=== PATIENT | female | born 1980 | race Caucasian/White ===

== ENCOUNTER 2017-11-05 08:52 | Observation (INO) | payer OTHER ==
--- NOTE | 2017-11-05 09:13 | EDPHY ---
General - History Smoking Status: Never smoked Time Seen by Provider: 11/05/17 08:58 Narrative: CHIEF COMPLAINT: Flank pain, back pain HISTORY OF PRESENT ILLNESS: Patient complains of pain on the right flank and back. This was a sudden onset on Sunday while at rest. It is located on the right flank and into the mid part of the right back. It is worse with palpation and movement. Does not radiate. Mild nausea but no vomiting. Some improvement when she lays still. No fever or chills. No trauma or injury. No dysuria or hematuria. She may have some increase in her urinary frequency. She has a history of renal colic and Crohn's. She says the pain is very similar to both a Crohn's flare in the past when she was diagnosed with a micro perforation as well as a renal colic with stones on the right side. Difficult for her to discern. She has no other associated complaints or modifying factors. All previous care was in [place]. No physicians in [place] yet. REVIEW OF SYSTEMS: Ten systems reviewed and are negative unless otherwise noted in the HPI PCP: Not yet established. SPECIALISTS: Not yet established PAST MEDICAL HISTORY: Crohn's. IUD in place PAST SURGICAL HISTORY: No surgical history SOCIAL HISTORY: Nonsmoker. Occasional alcohol. No drug use. Works as a manager tax FAMILY HISTORY: Noncontributory EXAMINATION General Appearance: Alert, no distress Head: normocephalic, atraumatic Eyes: Pupils equal and round, no conjunctival pallor or injection ENT, Mouth: Mucous membranes moist Neck: Normal inspection, supple, non-tender Respiratory: Lungs are clear to auscultation. No wheeze, rhonchi or crackles Cardiovascular: Rate is 102 beats per minute. Regular rhythm. No murmur Gastrointestinal: Abdomen is soft and nondistended. Mild tenderness on the right side. No guarding. Negative Whitaker. Negative McBurney. Negative obturator. Mild right-sided CVA tenderness. Back: Soft tissue tenderness in the right flank. No midline tenderness. Neurological: A&O, nonfocal, normal gait. Strength is symmetric. Skin: Warm and dry, no rash. No petechiae or purpura Extremities: Nontender, no pedal edema Psychiatric: Mood and affect normal DIFFERENTIAL DIAGNOSES: Including but not limited to Crohn's flare, ileitis, colitis, diverticulitis, renal colic, ureteral lithiasis, biliary colic, appendicitis MDM: 9:13 a.m. Right-sided flank and back pain with history of Crohn's and renal colic. Patient is uncertain this is more similar to her Crohn's flares renal colic. She no urinary complaints. She has no abnormality on abdominal exam. Her vital signs are within normal limits with mild tachycardia. She is afebrile and resting comfortably in no acute distress. She does not want any pain medication at this time. I have ordered laboratory studies and urinalysis. I have not ordered any imaging until the laboratory studies returned 9:20 a.m. CBC returns with a critically high hemoglobin and hematocrit. I have reviewed this with Dr. Matthews, and we will check a repeat CBC. 9:39 a.m. Repeat CBC returns with my minimally different hematocrit and hemoglobin. Hematocrit is no longer in the critical range. I discussed the case with Dr. Matthews. We have ordered 1 L IV fluid 9:40 a.m. Chemistry is unremarkable for any significant changes. HCG is negative. The patient is asking for pain medication. I have ordered IV Toradol. Urinalysis is pending 10:10 a.m. Urinalysis unremarkable. I have re-evaluated the patient her pain persist despite the Toradol. She has requested pain medication. I have ordered CT scan of the abdomen pelvis to further evaluate. She is in no acute distress. 11:00 a.m. Patient's pain is improving with morphine. CT scan pending. 11:23 a.m. Notified by radiologist Dr. Tenorio. CT scan reveals no acute surgical findings. There is some mild thickening consistent with her Crohn's. Right- sided ovarian cyst documented. 11:35 a.m. Patient re-evaluated. Still having pain but she thinks that is tolerable enough to go home. I did offer admission to the hospital for pain control but she would like to try and go home. I will discuss with GI further recommendations for outpatient medications. 11:50 a.m. Case discussed with on-call GI physician Dr. Howell. He does not recommend any IV p.o. Steroids. He recommends symptomatic control follow up with primary care physician and referral to his office. He would like her to contact his office to be seen outpatient. 12:00 p.m. Patient re-evaluated. After discussing further with Dr. Matthews we will provide a 2nd L of IV fluid resuscitation recheck her CBC. Additionally her pain is now increasing and she feels that she may not be able to go home from this. 1:10 p.m. She has received her 2nd L of IV fluid and her repeat CBC shows improvement but still mild hemoconcentration. I have re-evaluated her at this time and she still complaining of significant pain. This point I do not feel she will be discharged home and I feel she warrants admission the hospital for pain control. She has had multiple doses of medication. I have checked her PDMP report she has no narcotics in the past year. I have contacted the hospitalist for admission. 1:30 p.m. Case discussed with hospitalist Rose Deleon. Patient be admitted to Dr. Sinclair. She is admitted to observation status for intractable pain due to Crohn 's exacerbation. Admitted in stable condition. SUPERVISION: Patient was independently examined, but I discussed the case with my secondary supervising physician Dr. Matthews (Dusty Sousa) - Diagnostics Imaging Results: Imaging Impressions Abdomen CT 11/05/17 10:13 Impression: 1. No pneumoperitoneum or focal fluid collection. 2. No CT evidence of appendicitis, abscess or bowel obstruction. 3. Right ovarian 3.6 x 3.2 cm cyst. 4. L5-S1 right paramedian disk herniation causing dorsal displacement of right S1 nerve root. Findings and recommendations discussed with Emergency Department physician, Dusty Sousa PA-C at 1115 hour, 11/05/2017. Final report concurs with initial preliminary interpretation. Discussion: The patient was evaluated and managed by the Physician Staff Scientist. I discussed the patient's presentation and course with the midlevel provider with them and agree with the evaluation. My co-signature indicates that I have reviewed this chart and I agree with the findings and plan of care as documented. I am the secondary supervising physician. (Natasha Matthews) - Objective Vital Signs: Initial Vital Signs Temperature (C) 36.5 C 11/05/17 08:57 Heart Rate 101 H 11/05/17 08:57 Respiratory Rate 16 11/05/17 08:57 Blood Pressure 125/93 H 11/05/17 08:57 O2 Sat (%) 99 11/05/17 08:57 O2 Delivery Mode Room Air Allergies/Adverse Reactions: No Known Allergies Allergy (Unverified 11/05/17 08:55) Home Medications: Medication Instructions Recorded Ibuprofen [Motrin (*)] 200 mg PO DAILY PRN 11/05/17 Laboratory Results: Laboratory Results 11/05/17 12:45 11/05/17 09:05 11/05/17 11/05/17 11/05/17 12:45 12:40 09:40 WBC 8.58 10^3/uL 10^3/uL (3.80-9.50) RBC 5.42 10^6/uL H 10^6/uL (4.18-5.33) Hgb 18.0 g/dL H g/dL (12.6-16.3) Hct 53.6 % H % 53.4 % H % (38.0-47.0) (38.0-47.0) MCV 98.9 fL fL (81.5-99.8) MCH 33.2 pg pg (27.9-34.1) MCHC 33.6 g/dL g/dL (32.4-36.7) RDW 13.0 % % (11.5-15.2) Plt Count 98 10^3/uL L D 10^3/uL (150-400) MPV Neut % (Auto) Lymph % (Auto) Ness % (Auto) Eos % (Auto) Baso % (Auto) Nucleat RBC Rel Count Absolute Neuts (auto) Absolute Lymphs (auto) Absolute Monos (auto) Absolute Eos (auto) Absolute Basos (auto) Absolute Nucleated RBC Immature Gran % Immature Gran # ESR 1 MM/HR MM/HR (0-20) Sodium Potassium Chloride Carbon Dioxide Anion Gap BUN Creatinine Estimated GFR Glucose Calcium Total Bilirubin Conjugated Bilirubin Unconjugated Bilirubin AST ALT Alkaline Phosphatase C-Reactive Protein Total Protein Albumin Lipase Beta HCG, Qual Urine Color TG Urine Appearance MODERATELY TURBID Urine pH 6.0 (5.0-7.5) Ur Specific Burke 1.024 (1.002-1.030) Urine Protein NEGATIVE (NEGATIVE) Urine Ketones NEGATIVE (NEGATIVE) Urine Blood NEGATIVE (NEGATIVE) Urine Nitrate NEGATIVE (NEGATIVE) Urine Bilirubin NEGATIVE (NEGATIVE) Urine Urobilinogen NEGATIVE EU EU (0.2-1.0) Ur Leukocyte Esterase NEGATIVE (NEGATIVE) Urine RBC 1-3 /hpf /hpf (0-3) Urine WBC 1-3 /hpf /hpf (0-3) Ur Epithelial Cells 2+ /lpf H /lpf (NONE-1+) Urine Bacteria 1+ /hpf H /hpf (NONE SEEN) Urine Mucus 1+ /lpf /lpf (NONE-1+) Urine Glucose NEGATIVE (NEGATIVE) 11/05/17 11/05/17 11/05/17 09:29 09:05 09:05 WBC 8.41 10^3/uL 10^3/uL (3.80-9.50) RBC 5.99 10^6/uL H 10^6/uL (4.18-5.33) Hgb 20.1 g/dL H* g/dL (12.6-16.3) Hct 57.1 % H % (38.0-47.0) MCV 95.3 fL fL (81.5-99.8) MCH 33.6 pg pg (27.9-34.1) MCHC 35.2 g/dL g/dL (32.4-36.7) RDW 12.9 % % (11.5-15.2) Plt Count 252 10^3/uL 10^3/uL (150-400) MPV Neut % (Auto) Lymph % (Auto) Ness % (Auto) Eos % (Auto) Baso % (Auto) Nucleat RBC Rel Count Absolute Neuts (auto) Absolute Lymphs (auto) Absolute Monos (auto) Absolute Eos (auto) Absolute Basos (auto) Absolute Nucleated RBC Immature Gran % Immature Gran # ESR Sodium Potassium Chloride Carbon Dioxide Anion Gap BUN Creatinine Estimated GFR Glucose Calcium Total Bilirubin Conjugated Bilirubin Unconjugated Bilirubin AST ALT Alkaline Phosphatase C-Reactive Protein < 5.0 mg/L mg/L (<10.0) Total Protein Albumin Lipase Beta HCG, Qual NEGATIVE Urine Color Urine Appearance Urine pH Ur Specific Burke Urine Protein Urine Ketones Urine Blood Urine Nitrate Urine Bilirubin Urine Urobilinogen Ur Leukocyte Esterase Urine RBC Urine WBC Ur Epithelial Cells Urine Bacteria Urine Mucus Urine Glucose 11/05/17 11/05/17 09:05 09:05 WBC 9.15 10^3/uL 10^3/uL (3.80-9.50) RBC 6.59 10^6/uL H 10^6/uL (4.18-5.33) Hgb 21.7 g/dL H* g/dL (12.6-16.3) Hct 63.8 % H* % (38.0-47.0) MCV 96.8 fL fL (81.5-99.8) MCH 32.9 pg pg (27.9-34.1) MCHC 34.0 g/dL g/dL (32.4-36.7) RDW 13.6 % % (11.5-15.2) Plt Count 246 10^3/uL 10^3/uL (150-400) MPV 9.9 fL fL (8.7-11.7) Neut % (Auto) 71.4 % % (39.3-74.2) Lymph % (Auto) 19.9 % % (15.0-45.0) Ness % (Auto) 6.6 % % (4.5-13.0) Eos % (Auto) 0.8 % % (0.6-7.6) Baso % (Auto) 1.0 % % (0.3-1.7) Nucleat RBC Rel Count 0.0 % % (0.0-0.2) Absolute Neuts (auto) 6.54 10^3/uL H 10^3/uL (1.70-6.50) Absolute Lymphs (auto) 1.82 10^3/uL 10^3/uL (1.00-3.00) Absolute Monos (auto) 0.60 10^3/uL 10^3/uL (0.30-0.80) Absolute Eos (auto) 0.07 10^3/uL 10^3/uL (0.03-0.40) Absolute Basos (auto) 0.09 10^3/uL 10^3/uL (0.02-0.10) Absolute Nucleated RBC 0.00 10^3/uL 10^3/uL (0-0.01) Immature Gran % 0.3 % % (0.0-1.1) Immature Gran # 0.03 10^3/uL 10^3/uL (0.00-0.10) ESR Sodium 142 mEq/L mEq/L (135-145) Potassium 3.4 mEq/L L mEq/L (3.5-5.2) Chloride 98 mEq/L mEq/L (97-110) Carbon Dioxide 25 mEq/l mEq/l (22-31) Anion Gap 19 mEq/L H mEq/L (8-16) BUN 7 mg/dL mg/dL (7-23) Creatinine 0.9 mg/dL mg/dL (0.6-1.0) Estimated GFR > 60 Glucose 88 mg/dL mg/dL (70-100) Calcium 9.4 mg/dL mg/dL (8.5-10.4) Total Bilirubin 1.4 mg/dL mg/dL (0.1-1.4) Conjugated Bilirubin 0.6 mg/dL H mg/dL (0.0-0.5) Unconjugated Bilirubin 0.8 mg/dL mg/dL (0.0-1.1) AST 40 IU/L IU/L (14-46) ALT 40 IU/L IU/L (9-52) Alkaline Phosphatase 125 IU/L IU/L (38-126) C-Reactive Protein Total Protein 8.0 g/dL g/dL (6.3-8.2) Albumin 4.8 g/dL g/dL (3.5-5.0) Lipase 57 IU/L IU/L (23-300) Beta HCG, Qual Urine Color Urine Appearance Urine pH Ur Specific Burke Urine Protein Urine Ketones Urine Blood Urine Nitrate Urine Bilirubin Urine Urobilinogen Ur Leukocyte Esterase Urine RBC Urine WBC Ur Epithelial Cells Urine Bacteria Urine Mucus Urine Glucose Medications Given: Discontinued Medications Sodium Chloride (Ns) 1,000 mls @ 0 mls/hr IV EDNOW ONE; Wide Open PRN Reason: Protocol Stop: 11/05/17 09:39 Last Admin: 11/05/17 09:42 Dose: 1,000 mls Sodium Chloride (Ns) 1,000 mls @ 0 mls/hr IV EDNOW ONE; Wide Open PRN Reason: Protocol Stop: 11/05/17 12:00 Last Admin: 11/05/17 12:03 Dose: 1,000 mls Sodium Chloride (Ns) 1,000 mls @ 0 mls/hr IV EDNOW ONE; Wide Open PRN Reason: Protocol Stop: 11/05/17 13:21 Last Admin: 11/05/17 14:16 Dose: 1,000 mls Ketorolac Tromethamine (Toradol) 30 mg IVP EDNOW ONE Stop: 11/05/17 09:45 Last Admin: 11/05/17 09:46 Dose: 30 mg Morphine Sulfate (Morphine) 4 mg IVP EDNOW ONE Stop: 11/05/17 10:22 Last Admin: 11/05/17 10:26 Dose: 4 mg Morphine Sulfate (Morphine) 4 mg IVP EDNOW ONE Stop: 11/05/17 11:23 Last Admin: 11/05/17 11:24 Dose: 4 mg Morphine Sulfate (Morphine) 1 - 2 mg IVP Q2 PRN PRN Reason: Pain, Severe Unable to Take PO Stop: 11/15/17 13:54 Last Admin: 11/05/17 14:24 Dose: 2 mg Ondansetron HCl (Zofran) 4 mg IVP EDNOW ONE Stop: 11/05/17 10:25 Last Admin: 11/05/17 10:25 Dose: 4 mg Oxycodone/Acetaminophen (Percocet 5/325) 2 tab PO EDNOW ONE Stop: 11/05/17 12:06 Last Admin: 11/05/17 12:08 Dose: 2 tab Departure - Departure Disposition: [facility] Acute Clinical Impression: Exacerbation of Crohn's disease Qualifiers: Digestive disease complication type: unspecified complication Qualified Code(s) : K50.919 - Crohn's disease, unspecified, with unspecified complications Condition: Good
[2017-11-05 09:19] LABS: PLATELET COUNT 246 10^3/uL (150-400)
[2017-11-05] MEDS ORDERED: NS 1,000 ML IV ONE ×3 (09:38→13:20)
[2017-11-05] MEDS ORDERED: KETOROLAC 30 MG/1 ML SDV IVP ONE (09:44)
[2017-11-05] MEDS ORDERED: IOPAMIDOL (ISOVUE-300) 100 ML BTL ONE (10:23)
[2017-11-05] MEDS ORDERED: ONDANSETRON 4 MG/2 ML VIAL IVP ONE (10:24)
[2017-11-05] MEDS ORDERED: ONDANSETRON 4 MG/2 ML VIAL ONE (10:24)
[2017-11-05] MEDS ORDERED: OXYCODONE/APAP 5/325 TAB PO ONE (12:05)
[2017-11-05] MEDS ORDERED: oxyCODONE IR 5 MG TAB PO PRN (13:55)
[2017-11-05] MEDS ORDERED: PROMETHAZINE HCL 25 MG TAB PO PRN (13:55)
[2017-11-05] MEDS ORDERED: ONDANSETRON 4 MG/2 ML VIAL IVP PRN (13:55)
[2017-11-05] MEDS ORDERED: ONDANSETRON DISINTEGRATING 4 MG TAB PO PRN (13:55)
[2017-11-05] MEDS ORDERED: ACETAMINOPHEN 325 MG TAB PO PRN (13:55)
[2017-11-05] MEDS ORDERED: PROMETHAZINE HCL 25 MG/ML INJ IVP PRN (13:55)
--- NOTE | 2017-11-05 15:22 | PDGENHP ---
History and Physical - Chief Complaint Acute abdominal pain - History of Present Illness Primary care provider: None Primary ending machine operator: Dr. Seth Howell HPI: 37-year-old female presenting with acute abdominal pain located in the right flank and right lower back, associated with pain radiating down her right lower extremity, exacerbated by movement, alleviated by lying supine. Onset of symptoms was 2 days ago, and duration has been intermittent thereafter. The pain is characterized as severe, cramping internal pain. She reports that the pain mostly occurs when she moves. She denies any recent heavy lifting or any traumatic injury. She reports that she has chronic diarrhea which is nonbloody , and is not changed in quality or quantity in the recent past. She has been attempting to maintain oral hydration, but has had limited oral solid intake secondary to her inability to mobilize. The patient reports that she has experienced pain of similar character in the past, on 2 separate occasions, both leading to hospital presentations. The 1st hospital presentation was considered to be secondary to kidney stones, although no kidney stones were actually seen on imaging and the patient never passed a kidney stone, and the 2nd presentation was considered to be secondary to micro perforation associated with Crohn's disease, receiving extensive workup at [facility] in [place]. The patient reports that she chronically experiences pain in her abdomen and lower back, but she reports that she is normally able to handle it. Over the past several days, the patient has been utilizing ibuprofen and diclofenac at home, with incomplete relief. The patient reports that she normally has a very high pain tolerance, the pain has become unbearable and she is seeking medical attention. She has an outpatient appointment at [facility] [place], [place] next week home which she reports she is not able to make that appointment without interim pain relief. The morphine that received in the emergency department with IV Toradol has been Health. History Information - Allergies/Home Medication List Allergies/Adverse Reactions: No Known Allergies Allergy (Unverified 11/05/17 08:55) Home Medications: Ibuprofen [Motrin (*)] 200 mg PO DAILY PRN 11/05/17 [Last Taken 11/05/17] I have personally reviewed and updated: family history, medical history, social history, surgical history - Past Medical History Additional medical history: Crohn's disease based on extensive workup at [facility], including colonoscopy, upper endoscopy, not currently on any maintenance medications. Ovarian cysts. 2 normal vaginal deliveries, 1 intentional - Surgical History Reports: no pertinent surgical hx - Family History Additional family history: Mother with Sjogren's disease and mixed connective tissue disorder - Social History Smoking Status: Never smoked Alcohol Use: Occasionally Drug Use: None Additional social history: Patient has a stressful life situation, she is currently getting divorce from her is considering moving back to [place], she reports that her other episodes of illness both occurred in the context of severe life stressors Review of Systems Review of Systems: ROS: 10pt was reviewed & negative except for what was stated in HPI & below Gastrointestinal: Reports: abdominal pain, diarrhea Muscolosketal: Reports: back pain Physical Exam Physical Exam: Temp Pulse Resp BP Pulse Ox 36.5 C 92 14 97/70 L 91 L 11/05/17 14:57 11/05/17 14:57 11/05/17 14:57 11/05/17 14:57 11/05/17 14:57 Constitutional: appears nourished, uncomfortable, No no apparent distress ( Moderate distress), No not in pain (Moderate pain) Eyes: anicteric sclera, EOMI, other (Constricted pupils) Ears, Nose, Mouth, Throat: hearing normal, other (Tacky mucous membranes, glossitis) Cardiovascular: regular rate and rhythym, no murmur, rub, or gallop, No edema Respiratory: no respiratory distress, no rales or rhonchi, clear to auscultation Gastrointestinal: normoactive bowel sounds, tenderness (Right flank), No guarding, No distension Genitourinary: no bladder fullness, no bladder tenderness Skin: other (No abrasions or ecchymoses), No rash Musculoskeletal: other (No tenderness to palpation over the thoracic lumbar sacral spine, there is some tenderness to palpation over the right paraspinal muscles and immediately lateral to that area, negative straight leg raise, but the patient does have reproducible back pain at approximately 90 degree flexion) Neurologic: AAOx3, sensation intact bilaterally, No weakness Psychiatric: interacting appropriately, not anxious, not encephalopathic, thought process linear Lab Data & Imaging Review 11/05/17 12:45 11/05/17 09:05 WBC 8.58 10^3/uL (3.80-9.50) 11/05/17 12:45 RBC 5.42 10^6/uL (4.18-5.33) H 11/05/17 12:45 Hgb 18.0 g/dL (12.6-16.3) H 11/05/17 12:45 Hct 53.6 % (38.0-47.0) H 11/05/17 12:45 MCV 98.9 fL (81.5-99.8) 11/05/17 12:45 MCH 33.2 pg (27.9-34.1) 11/05/17 12:45 MCHC 33.6 g/dL (32.4-36.7) 11/05/17 12:45 RDW 13.0 % (11.5-15.2) 11/05/17 12:45 Plt Count 98 10^3/uL (150-400) L D 11/05/17 12:45 MPV 9.9 fL (8.7-11.7) 11/05/17 09:05 Neut % (Auto) 71.4 % (39.3-74.2) 11/05/17 09:05 Lymph % (Auto) 19.9 % (15.0-45.0) 11/05/17 09:05 [place] % (Auto) 6.6 % (4.5-13.0) 11/05/17 09:05 Eos % (Auto) 0.8 % (0.6-7.6) 11/05/17 09:05 Baso % (Auto) 1.0 % (0.3-1.7) 11/05/17 09:05 Nucleat RBC Rel Count 0.0 % (0.0-0.2) 11/05/17 09:05 Absolute Neuts (auto) 6.54 10^3/uL (1.70-6.50) H 11/05/17 09:05 Absolute Lymphs (auto) 1.82 10^3/uL (1.00-3.00) 11/05/17 09:05 Absolute Monos (auto) 0.60 10^3/uL (0.30-0.80) 11/05/17 09:05 Absolute Eos (auto) 0.07 10^3/uL (0.03-0.40) 11/05/17 09:05 Absolute Basos (auto) 0.09 10^3/uL (0.02-0.10) 11/05/17 09:05 Absolute Nucleated RBC 0.00 10^3/uL (0-0.01) 11/05/17 09:05 Immature Gran % 0.3 % (0.0-1.1) 11/05/17 09:05 Immature Gran # 0.03 10^3/uL (0.00-0.10) 11/05/17 09:05 ESR 1 MM/HR (0-20) 11/05/17 12:40 Sodium 142 mEq/L (135-145) 11/05/17 09:05 Potassium 3.4 mEq/L (3.5-5.2) L 11/05/17 09:05 Chloride 98 mEq/L (97-110) 11/05/17 09:05 Carbon Dioxide 25 mEq/l (22-31) 11/05/17 09:05 Anion Gap 19 mEq/L (8-16) H 11/05/17 09:05 BUN 7 mg/dL (7-23) 11/05/17 09:05 Creatinine 0.9 mg/dL (0.6-1.0) 11/05/17 09:05 Estimated GFR > 60 11/05/17 09:05 Glucose 88 mg/dL (70-100) 11/05/17 09:05 Calcium 9.4 mg/dL (8.5-10.4) 11/05/17 09:05 Total Bilirubin 1.4 mg/dL (0.1-1.4) 11/05/17 09:05 Conjugated Bilirubin 0.6 mg/dL (0.0-0.5) H 11/05/17 09:05 Unconjugated Bilirubin 0.8 mg/dL (0.0-1.1) 11/05/17 09:05 AST 40 IU/L (14-46) 11/05/17 09:05 ALT 40 IU/L (9-52) 11/05/17 09:05 Alkaline Phosphatase 125 IU/L (38-126) 11/05/17 09:05 C-Reactive Protein < 5.0 mg/L (<10.0) 11/05/17 09:05 Total Protein 8.0 g/dL (6.3-8.2) 11/05/17 09:05 Albumin 4.8 g/dL (3.5-5.0) 11/05/17 09:05 Lipase 57 IU/L (23-300) 11/05/17 09:05 Beta HCG, Qual NEGATIVE 11/05/17 09:05 Urine Color TG 11/05/17 09:40 Urine Appearance MODERATELY TURBID 11/05/17 09:40 Urine pH 6.0 (5.0-7.5) 11/05/17 09:40 Ur Specific Mcmillan 1.024 (1.002-1.030) 11/05/17 09:40 Urine Protein NEGATIVE (NEGATIVE) 11/05/17 09:40 Urine Ketones NEGATIVE (NEGATIVE) 11/05/17 09:40 Urine Blood NEGATIVE (NEGATIVE) 11/05/17 09:40 Urine Nitrate NEGATIVE (NEGATIVE) 11/05/17 09:40 Urine Bilirubin NEGATIVE (NEGATIVE) 11/05/17 09:40 Urine Urobilinogen NEGATIVE EU (0.2-1.0) 11/05/17 09:40 Ur Leukocyte Esterase NEGATIVE (NEGATIVE) 11/05/17 09:40 Urine RBC 1-3 /hpf (0-3) 11/05/17 09:40 Urine WBC 1-3 /hpf (0-3) 11/05/17 09:40 Ur Epithelial Cells 2+ /lpf (NONE-1+) H 11/05/17 09:40 Urine Bacteria 1+ /hpf (NONE SEEN) H 11/05/17 09:40 Urine Mucus 1+ /lpf (NONE-1+) 11/05/17 09:40 Urine Glucose NEGATIVE (NEGATIVE) 11/05/17 09:40 Visualized and Interpreted imaging results: Yes Interpretation: CT of the abdomen demonstrates no focal obstruction, normal appendix, marginal bowel inflammation, L5-S1 disc herniation Chin, right ovarian cyst measuring 3.6 x 3.2 cm Assessment & Plan Assessment: 37-year-old female presents with acute on chronic abdominal pain Plan: 1. Abdominal pain. Acute on chronic, new problem this provider, further workup indicated. Unclear etiology, possibilities include Crohn's disease flare, L5- S1 disc herniation, ruptured ovarian cyst, functional pain in the setting of life stressor exacerbation. The patient describes the pain as being very similar to pain that she has experienced on previous Crohn's flares, but that being said, the patient's ESR is 1, and the CRP is completely normal, indicating that acute active inflammation is less likely. The patient also reports that the pain has occurred in the context of severe life stressors, and this is her 3rd major life stressor, and 3rd episode of pain. That does not mean that the pain is entirely secondary to acute stress, but there may be a functional component and/or stress may be an exacerbating component. -discussed with Dr. Seth Howell, he reports that he will consult on the patient , appreciate his review -monitor stool output, monitor for fecal occult blood -treat supportively with IV and oral morphine, IV fluids, antiemetics -will avoid NSAIDs at the present time given her hematologic abnormalities -attempt to manage pain with some muscle relaxant p.r.n. as well as scheduled neuropathic agent given the possibility that the L5-S1 disc herniation is contributing -hold off on further ovarian imaging at this time given the patient reports 3 of ovarian cysts and the current CT does not demonstrate free fluid which would be more indicative of cyst rupture -order outside records from [facility], to further understand the patient' s extensive Crohn's disease workup 2. Thrombocytopenia. Acute, unclear etiology, patient's presenting platelet count was around 250,000, and after IV fluids it settled at 98,000 -will repeat CBC at this time to gauge whether her platelet count is continuing to drop -if platelet count continues to drop, will consult with Hematology -the patient may have simply been hemoconcentrated on presentation and her baseline platelet count may be around 100,000, continue to monitor -she has no recent heparin exposures, no reason to suspect hit 3. Polycythemia. Unclear etiology, patient's presenting hemoglobin level was 21.7 and was most likely hemoconcentrated, after receiving 2 L of lactated Ringer's, the patient's hemoglobin level remained elevated 18 -will repeat hemoglobin level at this time -again if this continues to remain significantly elevated, will consult with Hematology Diet. Clears, advance to bland as tolerated Prophylaxis. High risk patient, SCDs, hold pharmacologic prophylaxis given patient's hematologic issues Code. Full Disposition. Anticipated discharge is 11/06, pending stability and resolution of above.
[2017-11-05] MEDS ORDERED: METHOCARBAMOL 750 MG TAB PO PRN (15:33)
[2017-11-05 15:48] LABS: PLATELET COUNT 195 10^3/uL (150-400)
[2017-11-05] MEDS: POTASSIUM Cl (KCl) 20 MEQ in LR 1,000 ML IV SCH (17:38)
[2017-11-05] MEDS ORDERED: GABAPENTIN 300 MG CAP PO SCH (21:00)
[2017-11-06] MEDS: POTASSIUM Cl (KCl) 20 MEQ in LR 1,000 ML IV SCH ×2 (00:16→09:25)
[2017-11-06 04:48] LABS: PLATELET COUNT 162 10^3/uL (150-400)
--- NOTE | 2017-11-06 09:59 | ASMTCASEMG ---
Living Arrangements What is your living Answers: With Spouse arrangement? Who do you live with? Type Of Residence What kind of residence do Answers: House you live in? Discharge Plan Comments Coordination Status Comments Notes: Pt is a 37 y/o female admitted for cron's exacerbation, abdominal pain and flank pain. Pt will most likely d/c independent when medically stable. No therapies ordered at this time. CM available for changes. Plan: Independent Date Signed: 11/06/2017 09:59 AM Electronically Signed By:JOVANNA Melendrez
[2017-11-06 11:32] VITALS: BP 130/94; PULSE 81; RESP 16; TEMP 98.5; O2SAT 95
--- NOTE | 2017-11-06 12:00 | GCON ---
[f rep st] CONSULTATION DATE OF CONSULTATION: 11/06/2017 REQUESTING PROVIDER: Grady Celsi. Dear Dr. Celis: Thank you very kindly for asking me to evaluate this patient in consultation for a chief complaint of abdominal pain. HISTORY OF PRESENT ILLNESS: She is a pleasant 37-year-old female, who is recently establishing care in [place] and previously was seen in [place] for her medical car,e where she was diagnosed with "Cr ohn's disease." It sounds as though she presented initially with a microperforation of the intestine , which was treated conservatively with antibiotics and no need for surgical intervention and that a workup subsequent to this in Gastroenterology reportedly showed Crohn disease. She says this was thr ough a combination of endoscopy, blood tests, and sounds like maybe some biopsy information. Unfortu nately, I do not have those records today. The patient was doing well up until a few days ago when she started to again develop this right-sided flank pain that is pretty characteristic for her "attacks." The pain got quite severe and she prese nted to the ER. A CT scan of the abdomen and pelvis was unremarkable for any recurrence of bowel per foration and did not show any radiographic cause of the pain, or interestingly, any evidence of Crohn disease. Her labs were predominantly abnormal in regard to a hematocrit being 63.8%, which has impr francisca with subsequent hydration, but she had no real evidence of other hemoconcentrating or dehydratin g variables, specifically no elevation in her BUN or renal failure. She feels a bit better today wit h ongoing pain, but it is without other real serious factors. She denies any fever. She reports george t her bowel movements are "always abnormal: And can vary between diarrhea and constipation, but she h as not been noting any blood or fever. She does have back pain and diffuse joint arthralgias, but do es not carry a known arthritis diagnosis. There is no IBD diagnosis in her family, but her mother do es have Sjogren's. She has been nauseated but no vomiting. She denies any dysuria or hematuria. Sh e has no gynecologic complaints such as vaginal bleeding or discharge. Overall today, she feels bett er and I am asked to assist with further evaluation and management of her pain in the setting of a hi story of Crohn's. PAST MEDICAL HISTORY: 1. Recurrent abdominal and flank pain of unclear etiology. 2. A remote history of Crohn disease, although I do not know whether this is in the small bowel or c olon. I am also unclear as to whether this was related in some way to her "microperforation.". 3. She has had 1 . No other miscarriages or gynecologic history other than ovarian cysts. PAST SURGICAL HISTORY: Negative. FAMILY HISTORY: Mother with Sjogren disease. MEDICATIONS: On admission are some ibuprofen intermittently, but otherwise she has not been on any m edications for her inflammatory bowel disease. She has been on prednisone for a short period of time at her initial diagnosis. ALLERGIES: None known. SOCIAL HISTORY: The patient is under a great deal of stress over some family duress, but no alcohol, no substance abuse. No tobacco. She has recently relocated to [place] and was previously living i [facility]. REVIEW OF SYSTEMS: CONSTITUTIONAL: Denies fever, chills, night sweats, anorexia or weight loss. HE ENT: Denies headache, rhinorrhea, sore throat, epistaxis, or ear pain. PULMONARY: No cough or shor tness of breath. CARDIOVASCULAR: No chest pain, palpitations, or syncope. GI: Denies heartburn, d ysphagia, vomiting, melena, hematochezia. She does report episodic diarrhea, sometimes constipation. GENITOURINARY: Denies any hematuria or dysuria. She has right flank pain, however. GYNECOLOGIC: No vaginal discharge or bleeding. No dyspareunia. MUSCULOSKELETAL: She has right flank and back p ain. She sometimes has other small joint arthralgias and stiffness. No joint swelling or warmth or deformity. NEUROLOGIC: Denies paresthesias, weakness, or falls. DERMATOLOGIC: No rash or jaundice . PHYSICAL EXAM: VITAL SIGNS: Blood pressure is 106/71, heart rate is 85, respirations are 14, oxygen ation is 93% on room air. Temperature is 37. GENERAL: Healthy young female in no acute distress. Alert and able to provide her own history. HEENT: Normocephalic, atraumatic. Sclerae anicteric. O ropharynx is clear. No buccal mucosal lesions. Dentition looks good. No gingival swelling or thick ening. No thyromegaly. No lymphadenopathy. NECK: Supple. PULMONARY: Clear to auscultation bilat erally. No costochondral tenderness. CARDIOVASCULAR: Regular rate and rhythm without murmur or gal lop. GI: Abdomen is soft, nontender, nondistended. Normal bowel sounds. No ascites. No abdominal bruit. No organomegaly. Negative Whitaker sign. No CVA tenderness. MUSCULOSKELETAL: Normal gait a nd station without joint deformity, swelling, clubbing, palmar erythema, or increased joint warmth. DERMATOLOGIC: No rash or jaundice. NEUROLOGIC: Alert to person, place, and time. Motor nonfocal. Gait is not assessed today. DATABASE: Includes today's labs show a sodium of 143, potassium 3.9, chloride 111, bicarbonate 24, B UN 6, creatinine 0.7, glucose 69, total bilirubin 1.4 with a direct of 0.6, AST 40, ALT 40, alkaline phosphatase 125. C-reactive protein is less than 5. Total protein 8, albumin 4.8, lipase 57. Beta HCG negative. Admission CBC shows a white count of 9.1 with a hematocrit of 63.8 and a hemoglobin of 21.7. Platelets are 246. After 3 L of hydration today, her white blood count is 6.6, hematocrit is 47.6, her hemoglobin is 15.8, and platelets are 12.8. Urinalysis is absent for blood, nitrites, or leukocyte esterase. IMAGING: Includes a CT scan of the abdomen and pelvis on November 05, 2017. The exam is overall unr emarkable. There is no evidence of small bowel or colonic Crohn disease. No evidence of bowel obstr uction or distention. Kidneys are normal without hydronephrosis or stone. There is an IUD in place within the uterus. There is a small right ovarian cyst that is 3.6 x 3.2 cm. No fluid collection or inflammatory changes. L5-S1 shows a right paramedian 5 mm disk herniation that causes some mild raquel tral canal stenosis with dorsal displacement of the right S1 nerve root. IMPRESSION: 1. Right flank pain. 2. Remote history of Crohn's. 3. Polycythemia manifested by an elevated hemoglobin and hematocrit on admission, without other cell ular abnormalities. RECOMMENDATIONS: 1. Obtain records from her previous gastroenterology workup in [place]. This will be pivotal to see whether or not she actually has inflammatory bowel disease and how firm that diagnosis. 2. Diagnostically, the best test to help rule in or rule out inflammatory bowel disease at this poin t, would be a repeat upper endoscopy and colonoscopy, but she does not wish to proceed with that test ing currently. 3. Consider consultation regarding her herniated disk, as this may be the predominant cause of her p ain currently. I find no evidence of a recurrent bowel perforation or intestinal process that is med iating the flank pain currently. 4. Consider Hematology consultation for the polycythemia. 5. Advance diet as tolerated. 6. Once she is able to eat and drink and have her pain controlled, she can be discharged with outpat ient GI followup. 7. Call with any urgent questions. /[id number]/MODL
[2017-11-06] MEDS ORDERED: NAPROXEN SODIUM 220 MG TAB PO PRN (13:09)
[2017-11-06] MEDS ORDERED: DICYCLOMINE 20 MG TAB PO PRN (13:09)
--- NOTE | 2017-11-06 15:41 | PDDCSUM ---
Discharge Summary Discharge Summary: DISCHARGE SUMMARY FOLLOW-UP ITEMS: Establish primary care Follow up with [facility] the [facility] DATE OF ADMISSION: 11/05/2017 DATE OF DISCHARGE: 11/06/2017 DISCHARGE DIAGNOSES: 1. Acute on chronic abdominal pain 2. Acute polycythemia 3. Reported history of Crohn's disease 4. L5-S1 disc bulge CONSULTATIONS: [facility] Dr. Seth Howell PROCEDURES / IMAGING: Abdominal CT demonstrating no small-bowel obstruction, normal appendix, no evidence of significant bowel inflammation or distension CHIEF COMPLAINT: Acute on chronic abdominal pain SUBJECTIVE: Patient's abdominal pain is 4/10 at discharge, she reports she is feeling well on the symptomatic medications prescribed, she is amenable to being discharged home PHYSICAL EXAM ON DISCHARGE: Systolic blood pressure is 100, heart rate 70-90, afebrile overnight, satting well on room air, alert awake oriented x3, no apparent distress, abdomen is soft , mildly tender in the right flank, mildly tender in the right lateral paraspinal muscles in the lumbar spine, no tenderness to palpation over the vertebral bodies, lungs are clear to auscultation bilaterally, bowel sounds are present LABS ON DISCHARGE: Hemoglobin 15.8, platelets a [id number], white blood cell count 6600, creatinine 0.7 , potassium 3.9, ESR 1, CRP normal HOSPITAL COURSE BY PROBLEM: 1. Acute on chronic abdominal pain. I suspect that the patient's abdominal pain is more functional in nature, and possibly a functional exacerbation of an underlying process such as her L5-S1 disc bulge or irritability bowel syndrome with chronic diarrhea component, rather than an overt Crohn's disease flare. The patient was seen in consultation by Dr. Seth Howell, we both agree that the patient's radiographic findings and normal inflammatory markers appeared to be inconsistent with a Crohn's disease flare. The patient endorses that she has had 3 episodes of severe pain all in the setting of acute life stressors, and the patient feels like there may be a stress induced component. She reports that she chronically deals with abdominal pain, but that the pain has acutely worsened in the setting of these acute stressors. The patient also has responded very positively to as needed Bentyl, anti-inflammatory, and given that there may be an underlying neuropathic component, we have initiated gabapentin 300 mg at bedtime and also provided her with a limited supply of as needed Robaxin in case the disc bulge is contributing to her pain. The patient also utilizes non pharmacologic methods of pain control including heating pad and ice, and I have encouraged her to establish primary care with Dr. Tom Drew, so that the patient can continue to address chronic abdominal and back pain and determine whether these medications are helpful. It should be also noted that the patient's family history is significant for mother with mixed connective tissue disorder as well as Sjogren's syndrome, and is possible that the patient may intermittently be experiencing pain from an undiagnosed rheumatologic issue, although it does not appear that she has active inflammation, with her normal inflammatory markers at present. That being said , Dr. Seth Howell and I have provided the patient with an outpatient rheumatology contact, if the patient does decide that she would want outpatient workup here in [place]. The patient feels like the current nonnarcotic methods of pain control are adequate, and she is satisfied with her discharge home. 2. Reported chronic Crohn's disease. The patient reportedly had extensive workup at [facility] in [place], and we have requested those records, to be forwarded to the office Dr. Seth Howell. The patient has a follow-up appointment with [facility] the [facility] next week, and Dr. Howell will attempt to assemble the aforementioned information and discussed with the patient whether any maintenance medications are indicated. At the present time, the patient does not have any bloody bowel movements and as mentioned above she does not have any evidence of an acute flare. 3. Acute polycythemia. The patient presented with a hemoglobin level around 21 , and it was possible that she was purely hemoconcentrated, with her hemoglobin level returning to a normal value of 15.8, after receiving IV fluid hydration. The patient did have a decline in her platelet count, but I believe that this was most likely spurious, and an inaccurate lab value, as her repeat lab value was between 150,000 and [address]. Dr. Seth Howell and I discussed these lab findings, and I recommended that the patient have repeat labs drawn before her appointment with him, and if she does have an ongoing elevated hemoglobin level , then she should receive an outpatient Hematology referral from Dr. Howell. At the present time, there is no harm in discharging her with a normal hemoglobin level of 15.8 with lab follow-up. 4. L5-S1 disc bulge. Noted on CT imaging, unclear whether this is contributing to the patient's pain, she does report occasional radicular pain down the right lower extremity, but she had negative straight leg raise on physical exam. It is possible that she has a chronic disc bulge and the pain is exacerbated by acute stressors as outlined above. She does not have any indication for MRI imaging or surgery, the present time, I would recommend conservative management with increased mobility, nonsteroidal anti-inflammatory medications, muscle relaxants as needed, and introduction of gabapentin. She can also use heat and ice as needed. DISCHARGE MEDICATIONS: Please see official discharge medication reconciliation sheet in chart , Bentyl as needed, Robaxin as needed, gabapentin 300 mg at bedtime, to be up titrated in the outpatient setting as needed, naproxen as needed. DISCHARGE INSTRUCTIONS: Please schedule follow-up with the PCP, Rheumatology if desired by the patient, and follow up with [facility] next week with labs prior to that appointment.
== END 2017-11-06 16:30 | disposition home or self-care (01) ==
LOC: F3E 14:52
PROVIDERS: ADMIT Internal Medicine; ATTEND Internal Medicine
DX: R10.9 Unspecified abdominal pain (principal); G89.29 Other chronic pain; M54.9 Dorsalgia, unspecified; D75.1 Secondary polycythemia; D69.6 Thrombocytopenia, unspecified; E86.9 Volume depletion, unspecified; M51.27 Other intervertebral disc displacement, lumbosacral region; K50.919 Crohn's disease, unspecified, with unspecified complications; Z87.442 Personal history of urinary calculi; Z83.2 Family history of diseases of the blood and blood-forming organs and certain disorders involving the immune mechanism; Z97.5 Presence of (intrauterine) contraceptive device; Z63.5 Disruption of family by separation and divorce
CPT/HCPCS: 74177; 96361; 96374; 96375; 96376; 99285; G0378; J1885; J2270; J2405; J3480; Q9967

== ENCOUNTER 2018-02-11 14:23 | Emergency (ER) | payer OTHER ==
[2018-02-11] MEDS ORDERED: NS 500 ML IV ONE (15:27)
--- NOTE | 2018-02-11 15:33 | EDPHY ---
H & P Time Seen by Provider: 02/11/18 15:18 HPI/ROS: HPI Cramping in hands and feet. 37-year-old female by private vehicle with her and daughter. This patient reports that about 30 min prior to arrival she had an episode of severe cramping involving her hands and forearms as well as her feet. She reports this persisted for about 20 min and then resolved. She is feeling better now. She has had this in the past but states that she has not had cramping to this extent. She denies feeling anxious. Denies any significant strenuous or physical activity lately. ROS: Constitutional: No fever, no chills. As above. Eyes: No discharge. No changes in vision. ENT: No sore throat. No nasal congestion or rhinorrhea. Respiratory: No cough. No shortness of breath. Cardiac: No chest pain, no palpitations. Gastrointestinal: No abdominal pain, no vomiting, no diarrhea. Genitourinary: No hematuria. No dysuria or increased frequency with urination. Musculoskeletal: No back pain. No neck pain. As above. Skin: No rashes. Neurological: No headache. No focal weakness or altered sensation. Past medical history: IUD. Crohn's disease. Social history: Nonsmoker. Here with and daughter. No alcohol. Physical Exam: General Appearance: Alert, no distress. This patient is responding to questions appropriately and in full sentences. This patient appears well- hydrated and well-nourished. Eyes: Pupils equal and round no pallor or injection. No lid edema, erythema or injection. Respiratory: There are no retractions, lungs are clear to auscultation with good air movement bilaterally. Cardiovascular: Regular rate and rhythm. No murmur. Neurological: Motor sensory function is grossly intact. Cranial nerves are normal. Gait is normal. Skin: Warm and dry, no rashes. Musculoskeletal: Neck is supple and nontender. Extremities are symmetrical. All joints range without pain or impingement. Psychiatric: No agitation. No depression. Database: EKG: Imaging: Procedures: Emergency department course: IV placed. Vital signs were reviewed and are normal. She was started on IV normal saline with 500 cc to be given over the next hour. Will check electrolytes. 5:20 p.m., patient re-evaluated. Resting comfortably at this time. She has been asymptomatic since being in the emergency department. Secondary to a problem with analyzer there was a delay in getting her blood work back. I discussed the results of her lab work. She was mildly hypoglycemic. She was given some crackers and juice in the emergency department. She does feel comfortable going home. I feel she is safe for discharge with her and daughter. I will have her follow up with her primary care physician and a neurologist for re-evaluation in 2-3 days. Return to emergency department precautions were reviewed with her. All of her questions were answered. She was discharged from the emergency department in good condition. 8:30 p.m., late finding on lab work, calcium level noted to be low at 7.3. I called the patient at home. I spoke to her about this. I explained that hypocalcemia could be the reason for her muscle spasms in her hands and her feet. I will have her start calcium carbonate as a supplement to 1250 mg 3 times daily. She will follow up with her primary care physician in the next 2 days for re-evaluation and to have her calcium levels repeated as well as her parathyroid hormone level checked in her vitamin-D level checked. Return to emergency department precautions were discussed with her again. She feels comfortable with this plan. All of her questions were answered. Differential Diagnosis: The differential diagnosis on this patient includes but is not limited to anxiety reaction, muscle cramps/carpal pedal spasm unknown etiology, hypocalcemia/electrolyte abnormality. This represents a partial list of diagnoses considered. These considerations are based on history, physical exam , past history, reassessment and diagnostic testing. Smoking Status: Current some day smoker Constitutional: Initial Vital Signs Temperature (C) 36.4 C 02/11/18 14:27 Heart Rate 91 02/11/18 14:27 Respiratory Rate 16 02/11/18 14:27 Blood Pressure 120/83 H 02/11/18 14:27 O2 Sat (%) 97 02/11/18 14:27 O2 Delivery Mode Room Air O2 (L/minute) 36.5 Allergies/Adverse Reactions: No Known Allergies Allergy (Unverified 02/11/18 14:27) Home Medications: Medication Instructions Recorded Gabapentin [Neurontin 300 MG (*)] 300 mg PO HS #30 cap 11/06/17 Medical Decision Making - Data Points Laboratory Results: Laboratory Results 02/11/18 16:00 Medications Given: Discontinued Medications Sodium Chloride (Ns) 500 mls @ 0 mls/hr IV EDNOW ONE; Wide Open PRN Reason: Protocol Stop: 02/11/18 15:28 Last Admin: 02/11/18 15:00 Dose: 500 mls Departure - Departure Disposition: Home, Routine, Self-Care Clinical Impression: Muscle cramps, Hypocalcemia Condition: Good Instructions: Muscle Cramp (ED) Additional Instructions: Read and follow provided instructions. Follow-up with your primary care physician or Neurology this week for re- evaluation of your ongoing muscle cramping. Keep well hydrated. A good fluid to drink is Gatorade mixed with water in a 1- 1 dilution over ice. Eat regularly spaced nutritious meals. Return to the emergency department for worsening symptoms or other serious concerns. Referrals: Daniel Chavez DO [Doctor of Osteopathy] - As per Instructions
[2018-02-11 18:06] VITALS: BP 124/86
== END 2018-02-11 18:05 | disposition home or self-care (01) ==
DX: E83.51 Hypocalcemia (principal); F17.200 Nicotine dependence, unspecified, uncomplicated; E86.9 Volume depletion, unspecified